=== PATIENT | male | born 1940 | race African-American/Black ===

== ENCOUNTER 2020-09-13 18:31 | Inpatient (IN) ==
[2020-09-13] MEDS ORDERED: Naloxone 0.4 MG/ML INJ IVP PRN (21:01)
[2020-09-13] MEDS ORDERED: Acetaminophen 325 MG TABLET PO PRN (21:01)
[2020-09-13] MEDS ORDERED: 0.9 % Sodium Chloride 1,000 ML IVC SCH (21:15)
[2020-09-13] MEDS ORDERED: D5% in Water 1,000 ML IVC PRN (23:35)
[2020-09-13] MEDS ORDERED: *HR* Dextrose 50 % in Water (Vial) 50 ML VIAL IVP PRN (23:35)
[2020-09-13] MEDS ORDERED: Dextrose Gel 15 GM/37.5 ML TUBE PO PRN ×2 (23:35)
[2020-09-14] MEDS: Insulin LISPRO 300 UNITS/3 ML VIAL SUBQ SCH ×4 (01:00→19:27)
[2020-09-14] MEDS ORDERED: Haloperidol Lactate 5 MG/ML VIAL IVP ONE (01:44)
[2020-09-14] MEDS: Ondansetron 4 MG/2 ML VIAL IVP PRN (02:35)
[2020-09-14] MEDS: Melatonin 3 MG TABLET PO PRN (02:39)
[2020-09-14] MEDS ORDERED: Acetaminophen IV 1,000 MG/100 ML BAG IVPB ONE (02:51)
[2020-09-14] MEDS: Pantoprazole 40 MG VIAL IVP SCH ×2 (05:18→17:26)
[2020-09-14 05:43] LABS: Calcium 8.6 mg/dL (8.6-10.3); Potassium 4.9 mEq/L (3.5-5.1)
[2020-09-14 07:09] LABS: Calcium 8.8 mg/dL (8.6-10.3); Potassium 4.4 mEq/L (3.5-5.1)
[2020-09-14 07:35] LABS: Hematocrit 29.6 % (37.5-50.1); Mean Corpuscular HGB Conc 33.8 g/dL (31.6-35.5); Mean Corpuscular Hemoglobin 39.4 pg (28.0-33.3); Mean Corpuscular Volume 116.5 fL (83.0-100.0); Mean Platelet Volume 11.9 fL (9.4-12.4); Platelet Count 173 K/mcL (140-400); Red Blood Count 2.54 M/mcL (4.19-5.50); Red Cell Distribution Width 14.3 % (11.5-14.5); White Blood Count 7.4 K/mcL (4.3-11.1)
[2020-09-14] MEDS: MetroNIDAZOLE 500 MG/100 ML 500 MG/100 ML BAG IVPB SCH (15:43)
[2020-09-15] MEDS: MetroNIDAZOLE 500 MG/100 ML 500 MG/100 ML BAG IVPB SCH ×3 (00:27→16:12)
[2020-09-15] MEDS: Melatonin 3 MG TABLET PO PRN (00:27)
[2020-09-15] MEDS: Ondansetron 4 MG/2 ML VIAL IVP PRN (00:33)
[2020-09-15] MEDS: Insulin LISPRO 300 UNITS/3 ML VIAL SUBQ SCH ×4 (01:02→18:00)
[2020-09-15] MEDS: Pantoprazole 40 MG VIAL IVP SCH ×2 (05:33→18:07)
[2020-09-15 06:08] LABS: % Iron Saturation 22 % (20-55); Iron 53 mcg/dL (65-175); Transferrin 169 mg/dL (203-362)
[2020-09-15 06:26] LABS: Ferritin 343 ng/mL (20-250)
[2020-09-15 08:47] LABS: Basophils % 0.3 %; Eosinophils % 0.2 %; Hematocrit 30.1 % (37.5-50.1); Hemoglobin 10.3 g/dL (12.9-16.9); Immature Granulocytes % 0.8 % (0-4); Lymphocytes # 0.7 K/mcL (0.6-4.6); Lymphocytes % 11.1 %; Mean Corpuscular HGB Conc 34.2 g/dL (31.6-35.5); Mean Corpuscular Hemoglobin 40.1 pg (28.0-33.3); Mean Corpuscular Volume 117.1 fL (83.0-100.0); Mean Platelet Volume 11.9 fL (9.4-12.4); Monocytes # 0.7 K/mcL (0.0-1.3); Monocytes % 10.6 %; Neutrophils # 4.8 K/mcL (1.6-8.9); Platelet Count 165 K/mcL (140-400); Red Blood Count 2.57 M/mcL (4.19-5.50); Red Cell Distribution Width 14.5 % (11.5-14.5); White Blood Count 6.2 K/mcL (4.3-11.1)
[2020-09-15 09:05] LABS: Anisocytosis 1+ (Not Present); Macrocytosis Present (Not Present); Platelet Estimate Normal (Normal)
[2020-09-15 10:22] LABS: Calcium 8.9 mg/dL (8.6-10.3); Potassium 4.5 mEq/L (3.5-5.1)
[2020-09-15 11:18] LABS: Folate > 22.3 ng/mL (3.0-16.0); Vitamin B12 963 pg/mL (250-1100)
[2020-09-15] MEDS ORDERED: 0.9 % Sodium Chloride 1,000 ML IVC SCH (13:45)
[2020-09-15] MEDS ORDERED: SODIUM CHLORIDE/NAHCO3/KCL/PEG 4,000 ML SOLN.RECON PO ONE ×2 (15:39→17:00)
[2020-09-15] MEDS ORDERED: QUEtiapine Fumarate 25 MG TABLET PO SCH (21:00)
[2020-09-16] MEDS: MetroNIDAZOLE 500 MG/100 ML 500 MG/100 ML BAG IVPB SCH ×2 (00:14→09:15)
[2020-09-16] MEDS: Insulin LISPRO 300 UNITS/3 ML VIAL SUBQ SCH ×3 (00:14→15:48)
[2020-09-16] MEDS: Pantoprazole 40 MG VIAL IVP SCH (05:15)
[2020-09-16 06:28] LABS: Basophils % 0.2 %; Eosinophils # 0.1 K/mcL (0.0-0.6); Eosinophils % 0.8 %; Hematocrit 27.5 % (37.5-50.1); Hemoglobin 9.1 g/dL (12.9-16.9); Immature Granulocytes % 0.6 % (0-4); Lymphocytes # 0.9 K/mcL (0.6-4.6); Lymphocytes % 14.1 %; Mean Corpuscular HGB Conc 33.1 g/dL (31.6-35.5); Mean Corpuscular Hemoglobin 38.7 pg (28.0-33.3); Mean Platelet Volume 11.6 fL (9.4-12.4); Monocytes # 0.7 K/mcL (0.0-1.3); Monocytes % 11.7 %; Neutrophils # 4.6 K/mcL (1.6-8.9); Platelet Count 159 K/mcL (140-400); Red Blood Count 2.35 M/mcL (4.19-5.50); Red Cell Distribution Width 14.4 % (11.5-14.5); Segmented Neutrophils % 72.6 %; White Blood Count 6.3 K/mcL (4.3-11.1)
[2020-09-16 06:33] LABS: Anisocytosis 1+ (Not Present)
[2020-09-16 06:34] LABS: Macrocytosis Present (Not Present); Platelet Estimate Normal (Normal)
[2020-09-16 06:43] LABS: Calcium 8.4 mg/dL (8.6-10.3); Potassium 4.3 mEq/L (3.5-5.1)
[2020-09-16 18:46] VITALS: BP 183/85
== END 2020-09-16 19:47 | disposition home health service (06) | DRG 872 ==
LOC: 3ANU → SUATTDRO 20:25
PROVIDERS: ADMIT Internal Medicine; ATTEND Student in an Organized Health Care Education/Training Program

== ENCOUNTER 2021-04-27 07:47 | Inpatient (IN) ==
[2021-04-27] MEDS ORDERED: Naloxone 0.4 MG/ML INJ IVP PRN (09:54)
[2021-04-27] MEDS ORDERED: Ondansetron 4 MG/2 ML VIAL IVP PRN (09:54)
[2021-04-27] MEDS ORDERED: Acetaminophen 325 MG TABLET PO PRN (09:54)
[2021-04-27] MEDS ORDERED: D5% in Water 1,000 ML IVC PRN (09:56)
[2021-04-27] MEDS ORDERED: Dextrose Gel 15 GM/37.5 ML TUBE PO PRN ×2 (09:56)
[2021-04-27] MEDS ORDERED: *HR* Dextrose 50 % in Water (Syg) 50 ML SYRINGE IVP PRN (09:56)
[2021-04-27] MEDS ORDERED: Insulin DETEMIR 100 UNIT/ML X5UNITS SUBQ SCH (10:00)
[2021-04-27] MEDS: amLODIPine 5 MG TABLET PO SCH (11:33)
[2021-04-27] MEDS: carvediloL 6.25 MG TABLET PO SCH ×2 (11:33→20:37)
[2021-04-27] MEDS: Insulin LISPRO 300 UNITS/3 ML VIAL SUBQ SCH ×3 (11:34→20:33)
[2021-04-27 12:15] LABS: Bilirubin,Urine Negative (Negative); Blood,Urine Moderate (Negative); Clarity,Urine Clear (Clear); Color,Urine Light-Yellow (Yellow); Glucose,Urine (UA) 500 mg/dL (Normal); Hyaline Casts,Urine Many per lpf (None Seen); Ketones,Urine Trace mg/dL (Negative); Leukocyte Esterase,Urine Negative (Negative); Mucus,Urine Few per lpf (None-Few); Nitrite,Urine Negative (Negative); PH,Urine 6.5 pH Units (5.0-8.0); Protein,Urine >=600 mg/dL (Neg-Trace); Specific Gravity,Urine 1.018 (1.010-1.025); Squamous Epithelial Cell,Urine Few per hpf (None-Few); Transitional Epi Cells,Urine Few per hpf (None-Few); Urobilinogen,Urine Normal (Normal); WBC,Urine 0-3 per hpf (0-3)
[2021-04-27] MEDS: Insulin DETEMIR 100 UNIT/ML X5UNITS SUBQ SCH (13:14)
[2021-04-27] MEDS: *HR* Heparin 5,000 UNIT/ML VIAL SQ SCH (17:04)
[2021-04-27] MEDS: QUEtiapine Fumarate 25 MG TABLET PO SCH (20:37)
[2021-04-27] MEDS ORDERED: *HR* LORazepam 2 MG/ML VIAL IVP ONE (23:09)
[2021-04-28 04:52] LABS: Hematocrit 25.2 % (37.5-50.1); Hemoglobin 8.2 g/dL (12.9-16.9); Mean Corpuscular HGB Conc 32.5 g/dL (31.6-35.5); Mean Corpuscular Hemoglobin 35.3 pg (28.0-33.3); Mean Corpuscular Volume 108.6 fL (83.0-100.0); Mean Platelet Volume 11.3 fL (9.4-12.4); Platelet Count 187 K/mcL (140-400); Red Blood Count 2.32 M/mcL (4.19-5.50); White Blood Count 8.3 K/mcL (4.3-11.1)
[2021-04-28 05:10] LABS: Calcium 8.4 mg/dL (8.6-10.3); Magnesium 1.7 mg/dL (1.6-2.6); Phosphorous 4.5 mg/dL (2.7-4.5)
[2021-04-28 05:15] LABS: INR 1.2; Prothrombin Time 13.1 Seconds (9.4-12.1)
[2021-04-28] MEDS: *HR* Heparin 5,000 UNIT/ML VIAL SQ SCH ×2 (06:34→16:59)
[2021-04-28] MEDS: Insulin LISPRO 300 UNITS/3 ML VIAL SUBQ SCH ×4 (07:25→20:36)
[2021-04-28] MEDS: Insulin DETEMIR 100 UNIT/ML X5UNITS SUBQ SCH (09:29)
[2021-04-28] MEDS: amLODIPine 5 MG TABLET PO SCH (09:48)
[2021-04-28] MEDS: carvediloL 6.25 MG TABLET PO SCH ×2 (09:48→20:42)
[2021-04-28 11:51] LABS: Uric Acid 7.8 mg/dL (2.3-7.6)
[2021-04-28 15:05] LABS: Hepatitis B Surface Antigen Nonreactive (Nonreactive)
[2021-04-28 15:34] LABS: Hepatitis B Core IgM Nonreactive (Nonreactive); Hepatitis C Virus Antibody Nonreactive (Nonreactive)
[2021-04-28 15:36] LABS: Hepatitis A Antibody IgM Nonreactive (Nonreactive)
[2021-04-28] MEDS: QUEtiapine Fumarate 25 MG TABLET PO SCH (20:42)
[2021-04-28 20:48] LABS: Sodium, Urine 30.4 mEq/L
[2021-04-29] MEDS: *HR* Heparin 5,000 UNIT/ML VIAL SQ SCH (05:32)
[2021-04-29 06:13] LABS: Basophils % 0.2 %; Eosinophils % 0.3 %; Hematocrit 22.7 % (37.5-50.1); Hemoglobin 7.6 g/dL (12.9-16.9); Immature Granulocytes % 0.8 % (0-4); Lymphocytes # 0.8 K/mcL (0.6-4.6); Lymphocytes % 9.1 %; Mean Corpuscular HGB Conc 33.5 g/dL (31.6-35.5); Mean Corpuscular Hemoglobin 37.1 pg (28.0-33.3); Mean Corpuscular Volume 110.7 fL (83.0-100.0); Mean Platelet Volume 11.2 fL (9.4-12.4); Monocytes # 0.5 K/mcL (0.0-1.3); Monocytes % 5.8 %; Neutrophils # 7.6 K/mcL (1.6-8.9); Platelet Count 198 K/mcL (140-400); Red Blood Count 2.05 M/mcL (4.19-5.50); Red Cell Distribution Width 17.7 % (11.5-14.5); Segmented Neutrophils % 83.8 %; White Blood Count 9.1 K/mcL (4.3-11.1)
[2021-04-29 06:31] LABS: Calcium 8.2 mg/dL (8.6-10.3); Magnesium 1.9 mg/dL (1.6-2.6); Potassium 3.8 mEq/L (3.5-5.1)
[2021-04-29 06:58] LABS: Anisocytosis 1+ (Not Present); Macrocytosis Present (Not Present); Platelet Estimate Normal (Normal); Poikilocytosis 1+ (Not Present)
[2021-04-29] MEDS: Insulin LISPRO 300 UNITS/3 ML VIAL SUBQ SCH ×4 (08:54→20:08)
[2021-04-29] MEDS: hydrALAZINE 10 MG TABLET PO SCH ×2 (09:20→18:08)
[2021-04-29] MEDS: carvediloL 6.25 MG TABLET PO SCH ×2 (09:20→20:07)
[2021-04-29] MEDS: amLODIPine 5 MG TABLET PO SCH (09:20)
[2021-04-29] MEDS ORDERED: Sodium Bicarbonate 75 MEQ in 0.45 % Sodium Chloride 1,000 ML IVC SCH (13:15)
[2021-04-29] MEDS: Sodium Bicarbonate 75 MEQ in 0.45 % Sodium Chloride 1,000 ML IVC SCH (15:32)
[2021-04-29] MEDS: QUEtiapine Fumarate 25 MG TABLET PO SCH (20:07)
[2021-04-29] MEDS ORDERED: traZODone 50 MG TABLET PO PRN (20:24)
[2021-04-30] MEDS: hydrALAZINE 10 MG TABLET PO SCH ×4 (00:11→20:31)
[2021-04-30 01:22] LABS: Basophils % 0.2 %; Eosinophils # 0.1 K/mcL (0.0-0.6); Eosinophils % 1.3 %; Hematocrit 25.8 % (37.5-50.1); Hemoglobin 8.2 g/dL (12.9-16.9); Immature Granulocytes % 1.3 % (0-4); Lymphocytes # 0.7 K/mcL (0.6-4.6); Lymphocytes % 7.4 %; Mean Corpuscular HGB Conc 31.8 g/dL (31.6-35.5); Mean Corpuscular Volume 113.2 fL (83.0-100.0); Mean Platelet Volume 11.1 fL (9.4-12.4); Monocytes # 0.5 K/mcL (0.0-1.3); Monocytes % 5.4 %; Neutrophils # 7.9 K/mcL (1.6-8.9); Platelet Count 204 K/mcL (140-400); Red Blood Count 2.28 M/mcL (4.19-5.50); Red Cell Distribution Width 17.7 % (11.5-14.5); Segmented Neutrophils % 84.4 %; White Blood Count 9.4 K/mcL (4.3-11.1)
[2021-04-30 01:31] LABS: Anisocytosis 1+ (Not Present); Platelet Estimate Normal (Normal)
[2021-04-30 01:43] LABS: Calcium 7.9 mg/dL (8.6-10.3); Iron 24 mcg/dL (65-175); Potassium 3.6 mEq/L (3.5-5.1)
[2021-04-30 02:59] LABS: Magnesium 1.9 mg/dL (1.6-2.6)
[2021-04-30] MEDS: Sodium Bicarbonate 75 MEQ in 0.45 % Sodium Chloride 1,000 ML IVC SCH (06:50)
[2021-04-30] MEDS: Insulin LISPRO 300 UNITS/3 ML VIAL SUBQ SCH ×2 (07:08→12:08)
[2021-04-30] MEDS: carvediloL 6.25 MG TABLET PO SCH ×2 (14:10→20:32)
[2021-04-30] MEDS: amLODIPine 5 MG TABLET PO SCH (14:10)
[2021-04-30] MEDS: QUEtiapine Fumarate 25 MG TABLET PO SCH (20:34)
[2021-05-01 08:38] LABS: Hemoglobin 8.2 g/dL (12.9-16.9)
[2021-05-01 08:57] LABS: Calcium 7.8 mg/dL (8.6-10.3)
[2021-05-01] MEDS: amLODIPine 5 MG TABLET PO SCH (09:04)
[2021-05-01] MEDS: hydrALAZINE 10 MG TABLET PO SCH ×3 (09:04→20:32)
[2021-05-01] MEDS: carvediloL 6.25 MG TABLET PO SCH ×2 (09:04→20:32)
[2021-05-01] MEDS: Albumin 25% 25gram/100mL 25 GM/100 ML IV.SOLN IVPB SCH ×2 (15:44→23:47)
[2021-05-01] MEDS: QUEtiapine Fumarate 25 MG TABLET PO SCH (20:34)
[2021-05-02 06:54] LABS: Basophils % 0.3 %; Eosinophils # 0.1 K/mcL (0.0-0.6); Eosinophils % 1.5 %; Hematocrit 22.7 % (37.5-50.1); Hemoglobin 7.2 g/dL (12.9-16.9); Immature Granulocytes % 0.6 % (0-4); Lymphocytes # 0.9 K/mcL (0.6-4.6); Lymphocytes % 11.5 %; Mean Corpuscular HGB Conc 31.7 g/dL (31.6-35.5); Mean Corpuscular Volume 113.5 fL (83.0-100.0); Mean Platelet Volume 11.9 fL (9.4-12.4); Monocytes # 0.7 K/mcL (0.0-1.3); Monocytes % 8.5 %; Neutrophils # 6.1 K/mcL (1.6-8.9); Platelet Count 197 K/mcL (140-400); Red Cell Distribution Width 17.6 % (11.5-14.5); Segmented Neutrophils % 77.6 %; White Blood Count 7.9 K/mcL (4.3-11.1)
[2021-05-02 07:10] LABS: Calcium 7.7 mg/dL (8.6-10.3); Potassium 3.3 mEq/L (3.5-5.1)
[2021-05-02] MEDS ORDERED: 0.9 % Sodium Chloride 250 ML IVC PRN (07:30)
[2021-05-02] MEDS ORDERED: 0.9 % Sodium Chloride 1,000 ML PRIME SCH (07:30)
[2021-05-02] MEDS: hydrALAZINE 10 MG TABLET PO SCH ×3 (09:38→21:28)
[2021-05-02] MEDS: carvediloL 6.25 MG TABLET PO SCH ×2 (09:38→21:28)
[2021-05-02] MEDS: amLODIPine 5 MG TABLET PO SCH (09:39)
[2021-05-02] MEDS ORDERED: *HR* Heparin 5,000 UNIT/ML VIAL ONE (11:39)
[2021-05-02] MEDS ORDERED: *HR* Heparin 10,000 UNIT/10 ML VIAL IV PRN (13:39)
[2021-05-02] MEDS: QUEtiapine Fumarate 25 MG TABLET PO SCH (21:27)
[2021-05-03] MEDS ORDERED: 0.9 % Sodium Chloride 250 ML IVC PRN (07:12)
[2021-05-03 07:46] LABS: Hematocrit 22.8 % (37.5-50.1); Hemoglobin 7.3 g/dL (12.9-16.9)
[2021-05-03 07:48] LABS: Calcium 7.9 mg/dL (8.6-10.3); Potassium 3.1 mEq/L (3.5-5.1)
[2021-05-03] MEDS ORDERED: *HR* Heparin 10,000 UNIT/10 ML VIAL IV PRN (08:44)
[2021-05-03] MEDS: hydrALAZINE 10 MG TABLET PO SCH ×3 (09:39→21:16)
[2021-05-03] MEDS: amLODIPine 5 MG TABLET PO SCH (09:39)
[2021-05-03] MEDS: carvediloL 6.25 MG TABLET PO SCH ×2 (09:39→17:02)
[2021-05-03] MEDS ORDERED: Potassium Chloride Elixir 20 MEQ/15 ML UDC PO ONE (10:11)
[2021-05-03] MEDS: QUEtiapine Fumarate 25 MG TABLET PO SCH (21:17)
[2021-05-04 04:48] LABS: Hematocrit 24.7 % (37.5-50.1)
[2021-05-04 05:37] LABS: Calcium 6.9 mg/dL (8.6-10.3); Magnesium 1.5 mg/dL (1.6-2.6)
[2021-05-04] MEDS: carvediloL 6.25 MG TABLET PO SCH ×2 (09:27→18:14)
[2021-05-04] MEDS: hydrALAZINE 10 MG TABLET PO SCH ×3 (09:28→21:36)
[2021-05-04] MEDS: amLODIPine 5 MG TABLET PO SCH (09:28)
[2021-05-04] MEDS: Insulin LISPRO 300 UNITS/3 ML VIAL SUBQ SCH ×4 (18:13→21:38)
[2021-05-04] MEDS: QUEtiapine Fumarate 25 MG TABLET PO SCH (21:36)
[2021-05-04] MEDS ORDERED: diazePAM 10 MG/2 ML SYRINGE IVP STA (22:57)
[2021-05-05 05:29] LABS: Hematocrit 23.9 % (37.5-50.1); Hemoglobin 7.9 g/dL (12.9-16.9); Mean Corpuscular HGB Conc 33.1 g/dL (31.6-35.5); Mean Corpuscular Hemoglobin 36.7 pg (28.0-33.3); Mean Corpuscular Volume 111.2 fL (83.0-100.0); Mean Platelet Volume 11.9 fL (9.4-12.4); Platelet Count 209 K/mcL (140-400); Red Blood Count 2.15 M/mcL (4.19-5.50); Red Cell Distribution Width 16.4 % (11.5-14.5); White Blood Count 6.9 K/mcL (4.3-11.1)
[2021-05-05 05:53] LABS: Calcium 8.2 mg/dL (8.6-10.3); Magnesium 2.2 mg/dL (1.6-2.6)
[2021-05-05] MEDS: Insulin LISPRO 300 UNITS/3 ML VIAL SUBQ SCH ×5 (09:32→21:11)
[2021-05-05] MEDS: carvediloL 6.25 MG TABLET PO SCH ×2 (09:33→16:43)
[2021-05-05] MEDS: amLODIPine 5 MG TABLET PO SCH (09:33)
[2021-05-05] MEDS: hydrALAZINE 10 MG TABLET PO SCH ×3 (09:33→21:20)
[2021-05-05] MEDS: Melatonin 3 MG TABLET PO PRN (21:20)
[2021-05-05] MEDS: QUEtiapine Fumarate 25 MG TABLET PO SCH (21:20)
[2021-05-05] MEDS: Nystatin POWDER 30 GM BOTTLE TP SCH (21:20)
[2021-05-06 06:35] LABS: Hematocrit 24.3 % (37.5-50.1); Hemoglobin 7.7 g/dL (12.9-16.9); Mean Corpuscular HGB Conc 31.7 g/dL (31.6-35.5); Mean Corpuscular Hemoglobin 36.2 pg (28.0-33.3); Mean Corpuscular Volume 114.1 fL (83.0-100.0); Mean Platelet Volume 12.5 fL (9.4-12.4); Platelet Count 202 K/mcL (140-400); Red Blood Count 2.13 M/mcL (4.19-5.50); Red Cell Distribution Width 16.5 % (11.5-14.5); White Blood Count 7.6 K/mcL (4.3-11.1)
[2021-05-06] MEDS ORDERED: 0.9 % Sodium Chloride 250 ML IVC PRN (07:24)
[2021-05-06] MEDS ORDERED: Lidocaine/EPI 1:100k 1% 50 ML VIAL ONE (07:54)
[2021-05-06] MEDS ORDERED: Heparin 1,000 UNITS/500 mL 500 ML ONE (07:54)
[2021-05-06] MEDS: Insulin LISPRO 300 UNITS/3 ML VIAL SUBQ SCH ×4 (08:04→20:25)
[2021-05-06 08:19] LABS: Calcium 6.5 mg/dL (8.6-10.3); Magnesium 1.8 mg/dL (1.6-2.6); Potassium 3.2 mEq/L (3.5-5.1)
[2021-05-06] MEDS ORDERED: ceFAZolin 2,000 MG in 0.9 % Sodium Chloride 100 ML IVPB ONE (09:06)
[2021-05-06] MEDS ORDERED: *HR* Heparin 5,000 UNIT/ML VIAL ONE ×2 (09:10→09:33)
[2021-05-06] MEDS: ceFAZolin 1,000 MG in 0.9 % Sodium Chloride Mini Bag 100 ML IVPB SCH ×2 (09:25→09:43)
[2021-05-06] MEDS: carvediloL 6.25 MG TABLET PO SCH ×2 (09:52→18:39)
[2021-05-06] MEDS: hydrALAZINE 10 MG TABLET PO SCH ×3 (09:53→20:26)
[2021-05-06] MEDS: amLODIPine 5 MG TABLET PO SCH (10:03)
[2021-05-06] MEDS: Nystatin POWDER 30 GM BOTTLE TP SCH ×3 (10:39→20:26)
[2021-05-06] MEDS: Melatonin 3 MG TABLET PO PRN (20:26)
[2021-05-06] MEDS: QUEtiapine Fumarate 25 MG TABLET PO SCH (20:26)
[2021-05-07 08:56] LABS: Hematocrit 26.6 % (37.5-50.1); Hemoglobin 8.5 g/dL (12.9-16.9); Mean Corpuscular Hemoglobin 35.6 pg (28.0-33.3); Mean Corpuscular Volume 111.3 fL (83.0-100.0); Mean Platelet Volume 11.9 fL (9.4-12.4); Platelet Count 227 K/mcL (140-400); Red Blood Count 2.39 M/mcL (4.19-5.50); Red Cell Distribution Width 15.7 % (11.5-14.5); White Blood Count 8.9 K/mcL (4.3-11.1)
[2021-05-07] MEDS: Insulin LISPRO 300 UNITS/3 ML VIAL SUBQ SCH ×4 (09:05→20:01)
[2021-05-07] MEDS: hydrALAZINE 10 MG TABLET PO SCH ×3 (09:11→20:03)
[2021-05-07] MEDS: amLODIPine 5 MG TABLET PO SCH (09:11)
[2021-05-07] MEDS: carvediloL 6.25 MG TABLET PO SCH ×2 (09:11→16:09)
[2021-05-07] MEDS: Nystatin POWDER 30 GM BOTTLE TP SCH ×3 (09:12→20:03)
[2021-05-07 09:15] LABS: Calcium 8.6 mg/dL (8.6-10.3); Potassium 3.6 mEq/L (3.5-5.1)
[2021-05-07] MEDS: QUEtiapine Fumarate 25 MG TABLET PO SCH (20:03)
[2021-05-07] MEDS: Melatonin 3 MG TABLET PO PRN (20:03)
[2021-05-08 05:08] LABS: Hemoglobin 8.2 g/dL (12.9-16.9); Mean Corpuscular HGB Conc 32.8 g/dL (31.6-35.5); Mean Corpuscular Hemoglobin 36.1 pg (28.0-33.3); Mean Corpuscular Volume 110.1 fL (83.0-100.0); Platelet Count 214 K/mcL (140-400); Red Blood Count 2.27 M/mcL (4.19-5.50); Red Cell Distribution Width 15.5 % (11.5-14.5); White Blood Count 8.3 K/mcL (4.3-11.1)
[2021-05-08 05:40] LABS: Calcium 8.6 mg/dL (8.6-10.3); Potassium 3.6 mEq/L (3.5-5.1)
[2021-05-08] MEDS: Insulin LISPRO 300 UNITS/3 ML VIAL SUBQ SCH ×4 (09:08→21:57)
[2021-05-08] MEDS: carvediloL 6.25 MG TABLET PO SCH ×2 (09:53→17:40)
[2021-05-08] MEDS: Nystatin POWDER 30 GM BOTTLE TP SCH ×2 (09:55→17:28)
[2021-05-08] MEDS: hydrALAZINE 10 MG TABLET PO SCH ×3 (09:55→21:57)
[2021-05-08] MEDS: amLODIPine 5 MG TABLET PO SCH (09:55)
[2021-05-08] MEDS: QUEtiapine Fumarate 25 MG TABLET PO SCH (21:56)
[2021-05-08] MEDS: Melatonin 3 MG TABLET PO PRN (21:57)
[2021-05-09] MEDS: Nystatin POWDER 30 GM BOTTLE TP SCH ×4 (00:39→20:33)
[2021-05-09 06:22] LABS: Hematocrit 25.3 % (37.5-50.1); Hemoglobin 8.3 g/dL (12.9-16.9); Mean Corpuscular HGB Conc 32.8 g/dL (31.6-35.5); Mean Corpuscular Hemoglobin 36.1 pg (28.0-33.3); Mean Platelet Volume 12.4 fL (9.4-12.4); Platelet Count 237 K/mcL (140-400); Red Cell Distribution Width 15.2 % (11.5-14.5)
[2021-05-09 06:48] LABS: Calcium 8.4 mg/dL (8.6-10.3); Potassium 3.5 mEq/L (3.5-5.1)
[2021-05-09] MEDS ORDERED: 0.9 % Sodium Chloride 250 ML IVC PRN (08:09)
[2021-05-09] MEDS ORDERED: *HR* Heparin 10,000 UNIT/10 ML VIAL IV PRN (08:09)
[2021-05-09] MEDS ORDERED: 0.9 % Sodium Chloride 1,000 ML PRIME SCH (08:15)
[2021-05-09] MEDS: hydrALAZINE 10 MG TABLET PO SCH ×3 (08:25→20:33)
[2021-05-09] MEDS: carvediloL 6.25 MG TABLET PO SCH ×2 (08:25→17:02)
[2021-05-09] MEDS: amLODIPine 5 MG TABLET PO SCH (08:25)
[2021-05-09] MEDS: Insulin LISPRO 300 UNITS/3 ML VIAL SUBQ SCH ×4 (08:31→20:15)
[2021-05-09] MEDS: QUEtiapine Fumarate 25 MG TABLET PO SCH (20:34)
[2021-05-10] MEDS: Insulin LISPRO 300 UNITS/3 ML VIAL SUBQ SCH ×2 (07:26→11:40)
[2021-05-10] MEDS: carvediloL 6.25 MG TABLET PO SCH (07:57)
[2021-05-10] MEDS: amLODIPine 5 MG TABLET PO SCH (07:57)
[2021-05-10] MEDS: Nystatin POWDER 30 GM BOTTLE TP SCH ×2 (07:57→14:28)
[2021-05-10] MEDS: hydrALAZINE 10 MG TABLET PO SCH ×2 (07:57→14:27)
[2021-05-10 08:06] LABS: Hematocrit 26.6 % (37.5-50.1); Hemoglobin 8.4 g/dL (12.9-16.9); Mean Corpuscular HGB Conc 31.6 g/dL (31.6-35.5); Mean Corpuscular Hemoglobin 34.9 pg (28.0-33.3); Mean Corpuscular Volume 110.4 fL (83.0-100.0); Mean Platelet Volume 12.6 fL (9.4-12.4); Platelet Count 229 K/mcL (140-400); Red Blood Count 2.41 M/mcL (4.19-5.50)
[2021-05-10 08:09] LABS: Calcium 8.1 mg/dL (8.6-10.3); Potassium 3.9 mEq/L (3.5-5.1)
[2021-05-10 11:24] VITALS: BP 118/55; PULSE 73; TEMP 97.6; O2SAT 100
== END 2021-05-10 15:42 | disposition home health service (06) | DRG 673 ==
LOC: 2ANU → SUATTDRO 10:08 → 2ANU 04-30 09:10
PROVIDERS: ADMIT Internal Medicine; ATTEND Internal Medicine
PROC: IRPERMA (2021-05-06 11:00)

== ENCOUNTER 2021-09-30 15:22 | Inpatient (IN) ==
[2021-09-30] MEDS ORDERED: Cefepime HCl 2,000 MG in 0.9 % Sodium Chloride 10 ML IVP ONE (15:47)
[2021-09-30] MEDS: Ringers Solution, Lactated 1,000 ML IVC SCH ×3 (16:06→18:11)
[2021-09-30 16:13] LABS: Hematocrit 41.8 % (37.5-50.1); Hemoglobin 13.3 g/dL (12.9-16.9); Lymphocytes # 0.6 K/mcL (0.6-4.6); Mean Corpuscular HGB Conc 31.8 g/dL (31.6-35.5); Mean Corpuscular Hemoglobin 30.8 pg (28.0-33.3); Mean Corpuscular Volume 96.8 fL (83.0-100.0); Mean Platelet Volume 11.3 fL (9.4-12.4); Platelet Count 272 K/mcL (140-400); Red Blood Count 4.32 M/mcL (4.19-5.50); Red Cell Distribution Width 24.6 % (11.5-14.5)
[2021-09-30 16:17] LABS: White Blood Count 14.1 K/mcL (4.3-11.1)
[2021-09-30 16:20] LABS: VBG HCO3 8 mEq/L (21-27); VBG PCO2 23 mmHg (41-51); VBG PH 7.15 pH Units (7.32-7.42); VBG PO2 75 mmHg (25-50)
[2021-09-30] MEDS ORDERED: Calcium Gluconate 1,000 MG/10 ML VIAL IVP ONE (16:22)
[2021-09-30 16:31] LABS: INR 1.2; Prothrombin Time 13.7 Seconds (9.4-12.1)
[2021-09-30 16:33] LABS: Activated Partial Thrombo Time 31.2 Seconds (26.0-36.0)
[2021-09-30 16:37] LABS: Monocytes # 0.6 K/mcL (0.0-1.3)
[2021-09-30 16:38] LABS: Albumin 3.5 g/dL (3.5-5.7); Albumin/Globulin Ratio 0.9 (1.1-2.2); Bilirubin,Direct 0.2 mg/dL (0.0-0.2); Bilirubin,Indirect 0.4 mg/dL (0.0-1.0); Bilirubin,Total 0.6 mg/dL (0.3-1.0); Calcium 8.7 mg/dL (8.6-10.3); Globulin 3.8 g/dL (2.4-3.5); Large Platelets Present (Not Present); Magnesium 2.1 mg/dL (1.6-2.6); Phosphorous 7.6 mg/dL (2.7-4.5); Platelet Estimate Normal (Normal); Potassium 5.2 mEq/L (3.5-5.1); Total Protein 7.3 g/dL (6.4-8.9); Troponin I 0.14 ng/mL (< 0.04)
[2021-09-30] MEDS: Calcium Gluconate 1gm/50mL BAG IVPB SCH ×2 (17:17→18:06)
[2021-09-30 18:34] LABS: Bilirubin,Urine Negative (Negative); Blood,Urine Negative (Negative); Calcium Oxalate Crystals,Urine Present per hpf; Clarity,Urine Turbid (Clear); Color,Urine Yellow (Yellow); Glucose,Urine (UA) 70 mg/dL (Normal); Granular Casts,Urine Few per lpf (None Seen); Hyaline Casts,Urine Moderate per lpf (None Seen); Ketones,Urine Negative (Negative); Leukocyte Esterase,Urine Negative (Negative); Mucus,Urine Few per lpf (None-Few); Nitrite,Urine Negative (Negative); PH,Urine 5.5 pH Units (5.0-8.0); Protein,Urine 200 mg/dL (Neg-Trace); RBC,Urine 0-3 per hpf (0-3); Specific Gravity,Urine 1.018 (1.010-1.025); Urobilinogen,Urine Normal (Normal)
[2021-09-30] MEDS ORDERED: Naloxone 0.4 MG/ML INJ IVP PRN (20:19)
[2021-09-30] MEDS ORDERED: Ondansetron 4 MG/2 ML VIAL IVP PRN (20:19)
[2021-09-30] MEDS ORDERED: Melatonin 3 MG TABLET PO PRN (20:19)
[2021-09-30] MEDS ORDERED: Acetaminophen 325 MG TABLET PO PRN (20:19)
[2021-09-30] MEDS ORDERED: Sodium Bicarbonate 150 MEQ in D5% in Water 1,000 ML IVC SCH (20:30)
[2021-09-30 20:37] LABS: Influenza A PCR Negative (Negative); Influenza B PCR Negative (Negative); Resp. Syncytial Virus PCR Negative (Negative)
[2021-09-30 20:38] LABS: SARS-CoV-2 by PCR (In House) Negative (Negative)
[2021-10-01] MEDS ORDERED: *HR* Dextrose 50 % in Water (Syg) 50 ML SYRINGE IVP PRN (00:57)
[2021-10-01] MEDS ORDERED: Dextrose Gel 15 GM/37.5 ML TUBE PO PRN ×2 (00:57)
[2021-10-01] MEDS ORDERED: D5% in Water 1,000 ML IVC PRN (00:57)
[2021-10-01 03:20] LABS: Basophils % 0.3 %; Eosinophils % 0.1 %; Hematocrit 34.7 % (37.5-50.1); Immature Granulocytes % 0.4 % (0-4); Lymphocytes # 0.5 K/mcL (0.6-4.6); Lymphocytes % 4.1 %; Mean Corpuscular HGB Conc 32.6 g/dL (31.6-35.5); Mean Corpuscular Hemoglobin 30.5 pg (28.0-33.3); Mean Corpuscular Volume 93.5 fL (83.0-100.0); Mean Platelet Volume 11.4 fL (9.4-12.4); Monocytes # 0.6 K/mcL (0.0-1.3); Monocytes % 5.1 %; Neutrophils # 10.7 K/mcL (1.6-8.9); Platelet Count 262 K/mcL (140-400); Red Blood Count 3.71 M/mcL (4.19-5.50); Red Cell Distribution Width 24.2 % (11.5-14.5); White Blood Count 11.9 K/mcL (4.3-11.1)
[2021-10-01 03:26] LABS: Hemoglobin 11.3 g/dL (12.9-16.9)
[2021-10-01 03:27] LABS: Platelet Estimate Normal (Normal)
[2021-10-01] MEDS: MetroNIDAZOLE 500 MG/100 ML 500 MG/100 ML BAG IVPB SCH ×2 (03:29→11:06)
[2021-10-01 03:32] LABS: INR 1.4; Prothrombin Time 15.4 Seconds (9.4-12.1)
[2021-10-01 03:34] LABS: Activated Partial Thrombo Time 31.3 Seconds (26.0-36.0)
[2021-10-01 03:52] LABS: Albumin 3.2 g/dL (3.5-5.7); Bilirubin,Total 0.6 mg/dL (0.3-1.0); Calcium 8.7 mg/dL (8.6-10.3); Chol/HDL Ratio 2.9 (0-4.9); Globulin 3.1 g/dL (2.4-3.5); Phosphorous 5.8 mg/dL (2.7-4.5); Potassium 4.5 mEq/L (3.5-5.1); Total Protein 6.3 g/dL (6.4-8.9)
[2021-10-01] MEDS: Acetylcysteine 10% 2 ML INHSOL IH SCH ×3 (04:24→15:43)
[2021-10-01] MEDS: Ipratropium/Albuterol Neb 3 ML IH SCH ×3 (04:24→15:43)
[2021-10-01] MEDS ORDERED: Sodium Bicarbonate 150 MEQ in D5% in Water 1,000 ML IVC SCH (05:30)
[2021-10-01] MEDS ORDERED: Perflutren Lipid Microsphere 1.3 ML in 0.9 % Sodium Chloride 8.7 ML IVP PRN (05:32)
[2021-10-01] MEDS ORDERED: *HR* Heparin 5,000 UNIT/ML VIAL SQ SCH (06:00)
[2021-10-01 06:09] LABS: Bacteria,Urine Few per hpf (None-Few); Bilirubin,Urine Negative (Negative); Blood,Urine Large (Negative); Clarity,Urine Turbid (Clear); Color,Urine Yellow (Yellow); Glucose,Urine (UA) 70 mg/dL (Normal); Hyaline Casts,Urine Few per lpf (None Seen); Ketones,Urine Trace mg/dL (Negative); Leukocyte Esterase,Urine Small (Negative); Mucus,Urine Few per lpf (None-Few); Nitrite,Urine Negative (Negative); PH,Urine 5.5 pH Units (5.0-8.0); Protein,Urine 200 mg/dL (Neg-Trace); RBC,Urine TNTC per hpf (0-3); Specific Gravity,Urine 1.017 (1.010-1.025); Squamous Epithelial Cell,Urine Few per hpf (None-Few); Urobilinogen,Urine Normal (Normal); WBC,Urine TNTC per hpf (0-3)
[2021-10-01 07:08] LABS: Estimated Average Glucose 131 mg/dl; Hemoglobin A1C 6.2 %
[2021-10-01 07:09] LABS: Folate 16.6 ng/mL (3.0-16.0)
[2021-10-01 07:12] LABS: Vitamin B12 > 1500 pg/mL (250-1100)
[2021-10-01] MEDS ORDERED: Aspirin Enteric Coated 81 MG Tablet PO SCH (09:00)
[2021-10-01] MEDS ORDERED: MethylPREDNISolone 40 MG/ML VIAL IVP SCH (09:00)
[2021-10-01] MEDS ORDERED: Chlorhexidine Rinse 15 ML MOUTHWASH MM SCH (09:00)
[2021-10-01] MEDS ORDERED: Budesonide/Formoterol 160/4.5 1 PUFF INH IH SCH (10:00)
[2021-10-01 11:59] VITALS: BP 148/48; PULSE 84; TEMP 100.4
[2021-10-01 15:45] VITALS: O2SAT 93
[2021-10-01] MEDS ORDERED: Scopolamine Patch 1.5 MG PATCH.TD72 TD SCH (15:45)
[2021-10-01] MEDS ORDERED: *HR* LORazepam Oral Conc 2 MG/ML SL PRN (15:47)
[2021-10-01] MEDS ORDERED: Morphine Sulfate Oral CONC 10 MG/0.5 ML ORAL.SYG SL PRN (15:47)
[2021-10-01] MEDS ORDERED: Cefepime HCl 1,000 MG in 0.9 % Sodium Chloride 10 ML IVP SCH (16:00)
== END 2021-10-01 17:25 | disposition hospice, home (50) | DRG 177 ==
LOC: EMEROOARM 15:22 → 2NNU 15:22 → SUATTDRO 19:56 → 2NNU 20:38
PROVIDERS: ADMIT Internal Medicine; ATTEND Internal Medicine